=== PATIENT | male | born 1980 | race Two or more races ===

== ENCOUNTER 2021-03-28 23:31 | Emergency (ER) | payer SELFPAY ==
[~2021-03-28] VITALS: Ht 182.9 cm; Wt 68.0 kg
[2021-03-28] MEDS ORDERED: KETAMINE HCL (500MG/10ML) 50 MG/ML VIAL ONE (23:37)
--- NOTE | 2021-03-28 23:40 | NUR ---
PT BIBRA C/O ALOC. PT REFUSING TO ANSWER QUESTIONS. PER EMS, PT MAY HAVE OD'D ON AN UNKNOWN SUBSTANCE. PT BREATHING EVENLY AND UNLABORED. PT ATTACHED TO MONITOR AND POX. SKIN WARM, DRY, AND INTACT. EMT AT BEDSIDE FOR EKG. RT HAND 18G INITIATED. PT GIVEN BLANKET AND CALL LIGHT WITHIN REACH
[2021-03-28 23:51] LABS: BASOPHILS # (AUTO) 0.1 K/uL (0.0-0.2); BASOPHILS % (AUTO) 0.7 % (0.0-2.0); EOSINOPHILS % (AUTO) 2.4 % (0.0-6.0); HEMATOCRIT 40 % (39-51); HEMOGLOBIN 13.8 g/dL (13.5-17.5); LYMPHOCYTES # (AUTO) 2.5 K/uL (0.8-4.8); LYMPHOCYTES % (AUTO) 29.7 % (20.0-44.0); MEAN CORPUSCULAR HGB CONC 34 g/dl (31.0-36.0); MEAN CORPUSCULAR VOLUME 89 fL (80-96); MONOCYTES # (AUTO) 0.5 K/uL (0.1-1.30); MONOCYTES % (AUTO) 5.7 % (2.0-12.0); NEUTROPHILS # (AUTO) 5.2 K/uL (1.8-8.9); NEUTROPHILS % (AUTO) 61.5 % (43.0-81.0); PLATELET COUNT (AUTO) 246 K/uL (150-450); RED BLOOD CELL COUNT(AUTO) 4.54 MIL/uL (4.5-6.0); WHITE BLOOD COUNT (AUTO) 8.4 K/uL (4.3-11.0)
--- NOTE | 2021-03-28 23:52 | NUR ---
RADIOLOGY AT BEDSIDE
[2021-03-28 23:58] LABS: CALCIUM, SERUM 8.4 mg/dL (8.5-10.1); POTASSIUM 4.1 mmol/L (3.5-5.1)
[2021-03-29] MEDS ORDERED: KETAMINE HCL (500MG/10ML) 50 MG/ML VIAL IM ONE
[2021-03-29] MEDS ORDERED: ONDANSETRON HCL/PF 4 MG/2 ML VIAL ONE (00:10)
--- NOTE | 2021-03-29 00:24 | NUR ---
VERBAL ORDER OF 4MG ZOFRAN IVP
--- NOTE | 2021-03-29 00:46 | NUR ---
CALLED RADIOLGY FOR CT
--- NOTE | 2021-03-29 00:52 | NUR ---
ANNALEE BROOKS, FROM [facility] LEFT PHONE NUMBER,
--- NOTE | 2021-03-29 03:09 | NUR ---
Patient is picked up by [facility].
--- NOTE | 2021-03-29 03:09 | NUR ---
Patient discharged to home in stable condition. Written and verbal after care instructions given. Patient verbalizes understanding of instruction.
--- NOTE | 2021-03-29 03:09 | NUR ---
IV removed. Catheter intact and site benign. Pressure and 4x4 applied to site. No bleeding noted.
[2021-03-29 03:10] VITALS: BP 128/82
--- NOTE | 2021-03-29 03:11 | NUR ---
Patient is ambulatory with a steady gait.
== END 2021-03-29 03:11 | disposition home or self-care (01) ==
LOC: ER 23:33
DX: F19.10 Other psychoactive substance abuse, uncomplicated (principal); M79.674 Pain in right toe(s); R51.9 Headache, unspecified
CPT/HCPCS: 36415; 70450; 71045; 73630; 80048; 85025; 96372; 99285; J2405; J3490